=== PATIENT | female | born 1990 | race Asian ===

== ENCOUNTER 2018-07-14 09:00 | Inpatient (IN) | payer MEDICAID ==
[~2018-07-14] VITALS: Ht 154.9 cm; Wt 69.4 kg
[2018-07-14 09:34] VITALS: Ht 154.9 cm; Wt 69.4 kg
[2018-07-14 09:36] VITALS: BP 117/68; PULSE 68; RESP 20
[2018-07-14] MEDS: LACTATED RINGER'S 1,000 ML IV SCH ×3 (09:38→15:42)
[2018-07-14] MEDS ORDERED: MISOPROSTOL 200 MCG TAB PR PRN (10:00)
[2018-07-14] MEDS ORDERED: BUTORPHANOL 2 MG INJ IV PRN (10:00)
[2018-07-14] MEDS ORDERED: METHYLERGONOVINE 0.2 MG INJ IM PRN (10:00)
[2018-07-14] MEDS ORDERED: CARBOPROST 250 MCG INJ IM PRN (10:00)
[2018-07-14] MEDS ORDERED: OXYTOCIN 30 UNITS/LR 500 ML IV SCH ×3 (10:00→10:30)
[2018-07-14] MEDS ORDERED: LIDOCAINE 1% (MPF) 30 ML INJ INJ PRN (10:00)
[2018-07-14] MEDS ORDERED: OXYTOCIN 30 UNITS/LR 500 ML IV PRN (10:00)
[2018-07-14] MEDS ORDERED: IBUPROFEN 600 MG TAB PO PRN (10:00)
[2018-07-14] MEDS ORDERED: NA PHOSPHATE/BIPHOS 133 ML ENEMA PR ONE (10:30)
[2018-07-15] MEDS: LACTATED RINGER'S 1,000 ML IV SCH ×3 (00:18→07:25)
--- NOTE | 2018-07-15 02:27 | PREAC ---
Date/Time of Note Date/Time of Note DATE: 07/15/18 TIME: : Anesthesia Eval and Record Evaluation Time Pre-Procedure Interview DATE: 07/15/18 TIME: : Age 28 Sex female NPO: 8 hrs Preoperative diagnosis Planned procedure epidural Past Medical History Past Medical History: None Surgery & Anesthesia Issues No known issue Meds Anticoagulation: No Beta Sachin within 24 hr: No Reason Beta Sachin not given: Pt. not on B-Sachin Current Medications Lactated Ringer's 1,000 ml @ 125 mls/hr Q8H IV Last administered on 07/15/18at 00:18; Admin Dose 125 MLS/HR; Start 07/14/18 at 09:38 Butorphanol Tartrate (Stadol) 2 mg Q2H PRN IV .PAIN; Start 07/14/18 at 10:00 Lidocaine (Xylocaine 1% (Mpf)) 30 ml ONCE PRN INJ .EPISIOTOMY; Start 07/14/18 at 10:00 Oxytocin/Lactated Ringer's 500 ml @ 500 mls/hr ONCE POST IV ; Start 07/14/18 at 10:00 Oxytocin/Lactated Ringer's 500 ml @ 125 mls/hr POST IV ; Start 07/14/18 at 10:00 Ibuprofen (Motrin) 600 mg ONCE PRN PO .PAIN 1-5; Start 07/14/18 at 10:00 Oxytocin/Lactated Ringer's 500 ml @ 0 mls/hr ONCE PRN IV .VAGINAL BLEEDING; Start 07/14/18 at 10:00 Methylergonovine Maleate (Methergine) 0.2 mg ONCE PRN IM .VAGINAL BLEEDING; Start 07/14/18 at 10:00 Carboprost Tromethamine (Hemabate) 250 mcg ONCE PRN IM .VAGINAL BLEEDING; Start 07/14/18 at 10:00 Misoprostol (Cytotec) 1,000 mcg ONCE PRN PA .VAGINAL BLEEDING; Start 07/14/18 at 10:00 Oxytocin/Lactated Ringer's 500 ml @ 0 mls/hr FOR INDUCTION IV Last administered on 07/14/18at 12:17; Admin Dose 1 MLS/HR; Start 07/14/18 at 10:30 Meds reviewed: Yes Allergies Coded Allergies: No Known Allergy (Unverified , 07/14/18) Allergies Reviewed: Yes Labs/Studies Labs Reviewed: Reviewed by anesthesiologist Result Diagram: 07/14/18 1026 Laboratory Tests 07/14/18 10:26 Blood Bank Test 07/14/18 10:26 Antibody Screen NEGATIVE Blood Type AB POSITIVE Rh Immune Globulin Candidate NO test: Positive Pre-procedure Exam Last vitals Vital Signs Date Temp Pulse Resp B/P (MAP) Pulse Ox O2 O2 Flow FiO2 Time Delivery Rate 07/14/18 97.6 68 20 117/68 Room Air 09:36 (84) Airway: Adequate mouth opening, Adequate thyromental dist Mallampati: Mallampati II Teeth: Normal Lung: Normal Heart: Normal ASA Physical Status ASA physical status: 2 Emergency: None Planned Anesthetic Neuraxial: Epidural Pre-operative Attestations Prior to commencing anesthesia and surgery, the patient was re-evaluated, there was verification of: *The patient's identity *The results of appropriate recent lab work and preoperative vital signs *The above evaluation not changing prior to induction *Anesthetic plan, risk benefits, alternative and complications discussed with patient/family; questions answered; patient/family understands, accepts and wishes to proceed. CRISSY ANGULO Jul 15, 2018 02:27
[2018-07-15] MEDS ORDERED: HYDROmorphONE 0.5 MG/0.5 ML SYG IV PRN ×2 (02:30)
[2018-07-15] MEDS ORDERED: DIPHENHYDRAMINE 50 MG INJ IV PRN (02:30)
[2018-07-15] MEDS ORDERED: FENTAnyl 2MCG/ML-ROPIV 0.2% 100 ML BAG EPI SCH (02:30)
[2018-07-15] MEDS ORDERED: KETOROLAC 30 MG INJ IV PRN (02:30)
[2018-07-15] MEDS ORDERED: ONDANSETRON 4 MG INJ IV PRN (02:30)
[2018-07-15] MEDS ORDERED: NALOXONE (0.4 MG/ML) INJ IV PRN (02:30)
[2018-07-15] MEDS ORDERED: MINERAL OIL LIGHT 10 ML VIAL TOP PRN ×2 (07:30→07:45)
[2018-07-15 17:00] VITALS: BP 129/69; PULSE 82; RESP 18
--- NOTE | 2018-07-15 17:31 | LDN ---
Date/Time of Note Date/Time of Note DATE: 07/15/18 TIME: 17:28 Delivery Summary of normal female Weeks of Gestation 40w1d Placenta Delivered: Spontaneously, Intact & Complete Meconium: none Episiotomy: Yes Indication for episiotomy expected laceration MLE Perineal laceration: 0 Laceration repair: 00ch gut Anesthesia type: Epidural Estimated blood loss: 100 Sponge & Needle done & correct: Yes All needle counts correct: Yes Any foreign bodies felt in the: No Infant Delivery Information Sex Sex: female Apgars 1 Minute: 9 5 Minute: 9 Suctioning Nose & mouth suctioned at jez: Yes Delee suction performed: Yes Umbilical Cord Umbilical cord with: 3 Vessels Cord presentations: no nuchal cord Cord Blood was obtained: Yes Mother & Baby Disposition Disposition Mom & Baby to Maternity; Good: Yes Mom transferred to: Other Baby to NICU: No () GIN MCPHERSON MD Jul 15, 2018 17:31
--- NOTE | 2018-07-15 17:35 | HP ---
Date/Time of Note Date/Time of Note DATE: 07/15/18 TIME: 17:31 OB - History Hx of Present Free Text/Dictation 27 y.o at 40w for IOL VE ftp/70/-1 intact membrane GBS neg course was unevenful admitted for IOL by pitocin. Chief Complaint: IOL Estimated Due Date: Jul 14, 2018 : 1 Para: 0 Spontaneous : 0 Therapeutic : 0 Care: Good Care Ultrasounds: Normal mid trimester US Obstetrical Complications: None Medical Complications: None Past Family/Social History * Past Medical, Surgical, Family and Obstetric Histories reviewed from chart. Blood Type: AB+ Rubella: not immune RPR/VDRL: Negative GBS Status: Negative HBsAG: Negative OB Admission Exam Vital Signs Vital Signs Vital Signs Date Temp Pulse Resp B/P (MAP) Pulse Ox O2 O2 Flow FiO2 Time Delivery Rate 07/14/18 97.6 68 20 117/68 Room Air 09:36 (84) Physical Exam HEENT: WNL Heart: Rhythm Normal Lungs: Clear, Equal Abdomen: WNL Extremities: Normal Reflexes: Normal Cervical Dilatation: Fingertip Effacement: 75% Station: -1 Membranes: Intact Amniotic Fluid: Unevaluable Heart Rate: 150's Accelerations: Accelerations Present Decelerations: No Decelerations Varibility: Moderate Contractions on Admission: 6-10 Minutes Apart Intensity: Mild Last 72 hours Lab Results CBC & BMP 07/14/18 10:26 OB Assessment/Plan Reason for admission: induction of labor Other Assessment: IUP40w Induction Method: per Pitocin Protocol GIN MCPHERSON MD Jul 15, 2018 17:35
[2018-07-15 18:00] VITALS: BP 119/76; PULSE 80; RESP 18
[2018-07-15] MEDS ORDERED: ZOLPIDEM 5 MG TAB PO PRN (18:00)
[2018-07-15] MEDS ORDERED: METHYLERGONOVINE 0.2 MG INJ IM PRN (18:00)
[2018-07-15] MEDS ORDERED: CARBOPROST 250 MCG INJ IM PRN (18:00)
[2018-07-15] MEDS ORDERED: OXYCODONE/ASPIRIN (4.88/325) TAB PO PRN ×2 (18:00)
[2018-07-15] MEDS ORDERED: OXYTOCIN 30 UNITS/LR 500 ML IV PRN (18:00)
[2018-07-15] MEDS ORDERED: MISOPROSTOL 200 MCG TAB PR PRN (18:00)
[2018-07-15] MEDS: BENZOCAINE 20% 56 ML SPRAY TOP PRN (18:11)
[2018-07-15] MEDS: WITCH HAZEL/GLYCERIN PAD PR PRN (18:11)
[2018-07-15] MEDS: LANOLIN HPA 1 PKT TOP PRN (18:11)
[2018-07-15] MEDS: IBUPROFEN 600 MG TAB PO SCH (18:12)
[2018-07-15 20:30] VITALS: BP 96/49; RESP 18
[2018-07-15] MEDS: SENNA/DOCUSATE NA (8.6MG/50MG) TAB PO SCH (21:29)
[2018-07-16] VITALS: BP 104/55; RESP 18
[2018-07-16] MEDS: IBUPROFEN 600 MG TAB PO SCH ×5 (00:12→23:46)
[2018-07-16 04:00] VITALS: BP 103/50; RESP 17
[2018-07-16 10:30] VITALS: BP 106/65; PULSE 88; RESP 18
[2018-07-16] MEDS: SENNA/DOCUSATE NA (8.6MG/50MG) TAB PO SCH ×2 (12:09→20:35)
[2018-07-16 12:30] VITALS: BP 108/68; PULSE 84; RESP 20
[2018-07-16] MEDS: LANOLIN HPA 1 PKT TOP PRN ×2 (15:38→20:35)
[2018-07-16 15:40] VITALS: BP 116/66; PULSE 84; RESP 19
[2018-07-16] MEDS ORDERED: MEASLES,MUMPS,RUBELLA VACCINE INJ SC* ONE (19:30)
[2018-07-16 19:45] VITALS: BP 111/57; PULSE 72; RESP 18
--- NOTE | 2018-07-16 20:21 | QN ---
Documentation Comment c/o episiotomy pain vss afebrile fundus non tender lochia min calf neg for tenderness lower ext edematous post WBC 20.000 repeated one 17.700 Rubella not immune A stable s/p #1 P MMR today Tdap in am breast pump GIN MCPHERSON MD Jul 16, 2018 20:21
--- NOTE | 2018-07-16 20:23 | PD.PPDC ---
CONSTRUCTION REP Discharge Instruction Diagnosis [id number] Final Diagnosis: Xtocl9v s/p Condition [id number] Patient Condition: Fhlsz1l Stable Diet Siuga1Yh Diet: Mpdgs2f Resume Regular Diet Activity/Restrictions [id number] Activity: Kafjr4h Normal Activity May Shower [id number] Restrictions: Gweyx3o No Lifting No Sexual Activity Nothing in the Vagina No [place] No Tampons, douche Follow-up Follow-up with Physician: 6, Week/Weeks Return to clinic for [id number] BRUSH HAND Instructions: Deljk6b Fever greater than 101 Chills Worsening abdominal pain Excessive Vaginal Bleeding More than 2 pads per hour Unable to tolerate diet [id number] OB Instructions: Tdxhh8o Breast Tenderness Depression Blurried Vision Headache GIN MCPHERSON MD Jul 16, 2018 20:23
[2018-07-16] MEDS: WITCH HAZEL/GLYCERIN PAD PR PRN (20:34)
[2018-07-16] MEDS: BENZOCAINE 20% 56 ML SPRAY TOP PRN (20:34)
[2018-07-17 04:39] VITALS: BP 127/61; PULSE 79; RESP 18
[2018-07-17] MEDS: IBUPROFEN 600 MG TAB PO SCH ×2 (05:55→12:53)
[2018-07-17 08:00] VITALS: BP 109/75; PULSE 77; RESP 18
[2018-07-17] MEDS ORDERED: DIPHTH/TET/ACEL PERTUSS (ADULT) 0.5 ML VIAL IM* ONE (09:00)
[2018-07-17] MEDS: SENNA/DOCUSATE NA (8.6MG/50MG) TAB PO SCH (10:02)
--- NOTE | 2018-07-18 13:18 | DELSUM ---
Delivery Summary A-C Datetime Report Generated by CPN: 07/18/2018 13:18 DELIVERY PERSONNEL Glass Deposition Tender: [place], May MATERNAL INFORMATION Delivery Anesthesia: Epidural Medications in Delivery: LR with pitocin 30 units Delivery QBL (ml): 133 Placenta Cultured: No Maternal Complications: None LABOR SUMMARY EDC: 07/14/2018 00:00 No. Babies in Womb: 1 Attempted: No Labor Anesthesia: Epidural LABOR INFORMATION Reason for Induction: Postterm Onset of Labor: 07/15/2018 01:59 Complete Dilatation: 07/15/2018 07:34 Oxytocin: Induction Group B Beta Strep: Negative Antibiotics # of Doses: 0 Steroids Given: None Reason Steroids Not Administered: Not Applicable MEMBRANES Membranes Rupture Method: Artificial Rupture of Membranes: 07/15/2018 01:59 Length of Rupture (hr): 12.05 Amniotic Fluid Color: Clear Amniotic Fluid Amount: Small Amniotic Fluid Odor: None STAGES OF LABOR Stage 1 hr: 5 Stage 1 min: 35 Stage 2 hr: 6 Stage 2 min: 28 Stage 3 hr: 0 Stage 3 min: 7 Total Time in Labor hr: 12 Total Time in Labor min: 10 VAGINAL DELIVERY Episiotomy: Median Laceration Extension: N/A Laceration Type: None Laceration Repair: Not Applicable Initial Vag Sponge Count: 10 Initial Vag Sharps Count: 1 Sponge Count Correct: Yes; Vaginal Sweep Performed Sharps Count Correct: Yes BABY A INFORMATION Delivery Date/Time: 07/15/2018 14:02 Method of Delivery: Vaginal Born in Route : No : N/A Forceps: N/A Vacuum Extraction: N/A Shoulder Dystocia : No SHOULDER DYSTOCIA BABY A Delivery Date/Time: 07/15/2018 14:02 PRESENTATION/POSITION BABY A Presentation: Cephalic Cephalic Presentation: Vertex Vertex Position: Left Occipital Anterior Breech Presentation: N/A PLACENTA INFORMATION BABY A Placenta Delivery Time : 07/15/2018 14:09 Placenta Method of Delivery: Spontaneous Placenta Status: Delivered SCORES BABY A Heart Rate 1 min: >100 bpm Resp Effort 1 min: Good Cry Reflex Irritability 1 min: Cough/Sneeze/Pulls Away Muscle Tone 1 min: Active Motion Color 1 min: Body [place], Extremit Blue Resuscitation Effort 1 min: Tactile Stimulation SCORE 1 MIN: 9 Heart Rate 5 min: >100 bpm Resp Effort 5 min: Good Cry Reflex Irritability 5 min: Cough/Sneeze/Pulls Away Muscle Tone 5 min: Active Motion Color 5 min: Body [place], Extremit Blue Resuscitation Effort 5 min: Tactile Stimulation SCORE 5 MIN: 9 INFANT INFORMATION BABY A Gestational Age at Delivery: 40.1 Gestational Status: Full Term- 39- 40.6 Weeks Outcome : Liveborn Infant Condition : Stable Infant Sex: Female IDENTIFICATION/MEDS BABY A ID Band Number: [id number] ID Band Location: Right Leg; Left Arm Sensor Applied: Yes Sensor Number: [id number] Sensor Location : Cord Clamp Vitamin K Given : Not Given Erythromycin Given: Not Given WEIGHT/LENGTH BABY A Birthweight (gm): 3370 Infant Weight (lb): 7 Infant Weight (oz): 7 Length (in): 19.00 Infant Length (cm): 48.26 CORD INFORMATION BABY A No. Cord Vessels: 3 Nuchal Cord : N/A Cord Blood Taken: Yes Suction: Mouth; Nose ASSESSMENT BABY A Complications: None Physical Findings at Delivery: Within Normal Limits Infant Respirations: Appears Normal Library Helper/ALS Called : No Infant Care By: FABIOLA/LAKHWINDER Transferred To: Remains with Mother
== END 2018-07-17 13:18 | disposition home or self-care (01) | DRG 807 ==
LOC: L-D 09:03 → PP1 07-15 17:06
PROVIDERS: ADMIT Obstetrics & Gynecology; ATTEND Obstetrics & Gynecology
PROC: 10E0XZZ Delivery of Products of Conception, External Approach (ICD-10-PCS; principal; 2018-07-15)
PROC: 0W8NXZZ Division of Female Perineum, External Approach (ICD-10-PCS; 2018-07-15)
DX: O80 Encounter for full-term uncomplicated delivery (principal); Z37.0 Single live birth; Z3A.40 40 weeks gestation of pregnancy; Z23 Encounter for immunization
CPT/HCPCS: 62322; 76815; 85025; 85610; 85730; 86592; 86850; 86900; 86901; 87340; 88307; 90715; 99464; J2590; J3010; J7120